=== PATIENT | female | born 1935 | race Caucasian/White ===

== ENCOUNTER → 2017-02-28 | Outpatient (CLI) | payer MEDICARE, BC ==
[~2017-02-28] MED LIST: ASPI81TA16 PO; ATOR40TA16 PO; CALC1TAB30 PO; CALC1TAB87 PO; COEN1CAP PO; ENAL10TA PO; METO50TA PO; MIRA3350 PO; MIRA33504 PO; NITR0.4S SL; OCUVTAB4 PO; PANT40TA3 PO; PLAV75TA29 PO; PRESCAP5 PO; VITA10002 PO
[2017-02-28 11:47] LABS: HDL CHOLESTEROL 72.7 MG/DL (40.0-60.0)
== END ==
LOC: CLAB 09:34
PROVIDERS: ATTEND Internal Medicine Cardiovascular Disease
DX: I25.10 Atherosclerotic heart disease of native coronary artery without angina pectoris (principal); I10 Essential (primary) hypertension; E78.5 Hyperlipidemia, unspecified
CPT/HCPCS: 80061

== ENCOUNTER → 2017-02-28 | Outpatient (CLI) | payer MEDICARE, BC ==
--- NOTE | 2017-02-28 10:57 | RADRPT ---
EXAM DATE/TIME: 02/28/2017 10:37 [place] COMPARISON: No previous studies available for comparison. INDICATIONS : Evaluate for pneumonia, pneumothorax or communicable disease. Pre for transanal polypectomy 03-21-17 MEDICAL HISTORY : Myocardial infarction. Stroke. SURGICAL HISTORY : None. ENCOUNTER: Initial ACUITY: 1 day PAIN SCORE: 0/10 LOCATION: Bilateral chest FINDINGS: PA and lateral views of the chest demonstrate the lungs to be symmetrically aerated without evidence of mass, infiltrate or effusion. The cardiomediastinal contours are unremarkable. Osseous structure s are intact. CONCLUSION: 1. No acute cardiopulmonary disease. Sudhakar Chery MD on February 28, 2017 at 10:55 Board Certified Radiologist. This report was verified electronically.
[2017-02-28 11:20] LABS: AUTOMATED NEUTROPHIL # 3.2 TH/MM3 (1.8-7.7); BASOPHIL % 0.6 % (0.0-2.0); EOSINOPHIL # 0.1 TH/MM3 (0-0.4); EOSINOPHIL % 2.1 % (0.0-4.0); HEMATOCRIT 38.7 % (35.0-46.0); HEMO FLAGS DIFF FINAL; LYMPH % 27.5 % (9.0-44.0); LYMPHOCYTE # 1.4 TH/MM3 (1.0-4.8); MEAN CELL VOLUME 90.5 FL (80.0-100.0); MEAN CORPUSCULAR HEMOGLOBIN 30.3 PG (27.0-34.0); MEAN CORPUSCULAR HGB CONC 33.5 % (32.0-36.0); NEUT % 61.8 % (16.0-70.0); PLATELET COUNT 255 TH/MM3 (150-450); RED BLOOD COUNT 4.27 MIL/MM3 (4.00-5.30); RED CELL DISTRIBUTION WIDTH 13.1 % (11.6-17.2); WHITE BLOOD COUNT 5.2 TH/MM3 (4.0-11.0)
[2017-02-28 11:45] LABS: ANION GAP 7 MEQ/L (5-15); AST (GOT) 21 U/L (15-37); BLOOD UREA NITROGEN 18 MG/DL (7-18); CHLORIDE 106 MEQ/L (98-107); GLOMERULAR FILTRATION RATE 52 ML/MIN (>89); GLUCOSE,FASTING 77 MG/DL (74-99); POTASSIUM 4.5 MEQ/L (3.5-5.1); SODIUM (NA) 143 MEQ/L (136-145)
[2017-02-28 11:49] LABS: ALKALINE PHOSPHATASE 76 U/L (45-117); ALT (GPT) 21 U/L (10-53); TOTAL BILIRUBIN ADULT 0.7 MG/DL (0.2-1.0)
[2017-02-28 12:47] LABS: BACTERIA, URINE RARE /hpf; BLOOD, URINE NEG (NEG); COMMENT (UR) CULT NOT INDICATED; CULTURE IF INDICATED CULT NOT INDICATED; GLUCOSE,URINE NEG (NEG); HYALINE CAST, URINE 1 /lpf (RARE); KETONE, URINE NEG (NEG); MUCUS URINE FEW /lpf (OCC); NITRITE,URINE NEG (NEG); PH, URINE 6.5 (5.0-8.5); SQUAMOUS EPITHELIAL CELL URINE 1 /hpf (0-5); URINE COLOR YELLOW (YELLW/STRAW)
== END ==
LOC: CPRE 09:25
PROVIDERS: ATTEND Colon & Rectal Surgery
DX: Z01.810 Encounter for preprocedural cardiovascular examination (principal); Z01.811 Encounter for preprocedural respiratory examination; Z01.812 Encounter for preprocedural laboratory examination; Z01.818 Encounter for other preprocedural examination; D12.8 Benign neoplasm of rectum
CPT/HCPCS: 36415; 71020; 80053; 81001; 82378; 85025

== ENCOUNTER → 2017-03-21 | Day surgery (SDC) | payer MEDICARE, BC ==
[~2017-03-21] VITALS: Ht 162.6 cm; Wt 69.5 kg
[~2017-03-21] MED LIST changes: +*ENALAPRILAT 1.25 MG/ML VIAL PERIprocedural Use ONLY ONE; +ACETAMINOPHEN/HYDROcodone 325 MG/5 MG TAB PO PRN; -CALC1TAB30 PO; +CHLORHEXIDINE GLUCONATE 2 % 1 PACK (2 CLOTHS) TOPICAL PRN; +DO NOT ADM ANY ANTICOAGULANT DRUGS PRN; +INSULIN HUMAN REGULAR 1,000 UNITS/10 ML VIAL SQ PRN; +KETOROLAC TROMETHAMINE IM PRN; +KETOROLAC TROMETHAMINE IV PUSH PRN; +LACTATED RINGER'S 1000 ML IV PRN; +LIDOCAINE 0.5%/EPINEPHrine 1:200,000 SOLN 50 ML VIAL ONE; +LIDOCAINE HCL 1% PF 5 ML SYRINGE OTHER ONE; +METOPROLOL TARTRATE 25 MG TAB PO PRN; -MIRA33504 PO; +MORPHINE SULFATE 2 MG/ML INJ IV PRN; +ONDANSETRON HCL 4 MG/2 ML VIAL IV PUSH PRN; +POVIDONE IODINE 5% (ANTISEPSIS KIT) 4 APPLICATIONS EACH NARE PRN; -PRESCAP5 PO; +PROPOFOL 200 MG/20 ML AMP IV ONE; +SODIUM CHLORID 0.9% 500 ML IV PRN; +VANCOMYCIN 500 MG VIAL ONE; +metroNIDAZOLE 500 MG INJ 100 ML IV ONE
[2017-03-21 15:34] VITALS: BP 180/71; PULSE 68; RESP 18; TEMP 97.5; O2SAT 100
--- NOTE | 2017-03-22 06:52 | MP ---
cc: DEANNA LEONARD M.D., JESSIE, DR. DATE OF SURGERY 03/21/2017 PREOPERATIVE DIAGNOSIS Rectal polyp DIAGNOSIS Rectal polyp PROCEDURE Transanal polypectomy SURGEON Deanna Leonard MD ANESTHESIA General per ET tube ESTIMATED BLOOD LOSS Less than 50 cc. OPERATIVE INDICATIONS The patient is an 82-year-old female with a low lying small rectal polyp. OPERATIVE COURSE The patient was brought into the operating room, placed in the supine position. After induction of general anesthesia, the patient was placed in Candy cane stirrups and all bony prominences carefully padded. The skin of the perineal area was then prepped and draped in the usual sterile fashion. Anoscopy was then performed and posterior just above the anal verge, the patient was noted to have a 1-1/2 cm sessile polyp. The submucosa was then infiltrated with 0.5% Lidocaine lifted from the surface and the polyp was then removed using electrocautery trying to maintain a margin of 2-3 mm. After excision of the polyp, the left lateral site was marked with a stitch, the right lateral side actually broke off and came in a separate piece. The bed was then examined with no sign of any further polyp or significant bleeding. The defect was then closed in an interrupted [id number] fashion using 3-0 Vicryl, closing it horizontally. The patient tolerated the procedure well. All sponge, needle and sponge counts were correct and the patient was returned to the post anesthesia care in stable condition. MD ABBEY Pittman/MILAGROS /1:52 PM /6:34 AM
== END | disposition home or self-care (01) ==
LOC: HSDC 10:33
PROVIDERS: ATTEND Colon & Rectal Surgery
DX: D12.8 Benign neoplasm of rectum (principal); I10 Essential (primary) hypertension
CPT/HCPCS: 00902; 45171; 88305; J3370; J7120